=== PATIENT | female | born 1995 | race Caucasian/White ===

== ENCOUNTER 2016-07-17 23:23 | Emergency (ER) | payer OTHER, SELFPAY ==
[~2016-07-17] VITALS: Ht 175.3 cm; Wt 64.2 kg
[2016-07-17 23:30] VITALS: BP 126/80
[2016-07-18] MEDS ORDERED: PHENAZOPYRIDINE 200 MG TABLET ONE (00:36)
[2016-07-18] MEDS ORDERED: PHENAZOPYRIDINE 200 MG TABLET PO ONE (01:00)
[2016-07-18 01:21] LABS: HCG UR OBC PASS
== END 2016-07-18 01:51 | disposition home or self-care (01) ==
LOC: ED 23:59
DX: N30.90 Cystitis, unspecified without hematuria (principal); R10.30 Lower abdominal pain, unspecified
CPT/HCPCS: 81001; 81025; 87086; 99284